=== PATIENT | male | born 1990 | race Caucasian/White ===

== ENCOUNTER 2020-11-17 01:18 | Emergency (ER) | payer OTHER ==
[~2020-11-17 01:18] MED LIST: NORFLEX 100 MG100 MG PO; PREDNISONE 50 M50 MG PO; TAMIFLU75 MG PO; Voltaren Gel 1 % TOP; ZOFRAN ODT 4 MG4 MG PO
[2020-11-17 02:28] LABS: HEMOGLOBIN 16.8 gm/dl (14.0-17.5); RED BLOOD COUNT 5.34 M/UL (4.20-5.50); WHITE BLOOD COUNT 9.7 K/UL (4.5-11.0)
[2020-11-17 02:56] LABS: BUN/CREATININE RATIO 11 (0-10)
== END 2020-11-17 03:03 | disposition left against medical advice (07) ==
LOC: ER1 01:18
PROVIDERS: Family Medicine
DX: R07.89 Other chest pain (principal); F17.210 Nicotine dependence, cigarettes, uncomplicated
CPT/HCPCS: 71046; 80053; 82550; 82553; 83874; 84484; 85025; 85610; 93005; 99285